=== PATIENT | female | born 1975 | race Caucasian/White ===

== ENCOUNTER 2018-11-29 19:40 | Emergency (ER) | payer SELFPAY ==
[~2018-11-29] VITALS: Ht 152.4 cm; Wt 70.9 kg
[2018-11-29 19:44] VITALS: Ht 152.4 cm; Wt 70.9 kg
--- NOTE | 2018-11-29 21:00 | ERD ---
ER Documentation Chief Complaint Chief Complaint left knee pain s/p fall at work, small abrasion noted HPI Patient is a 43-year-old female with no past medical history presents the ER for concerns of left knee pain and foot pain after trip and fall injury which occurred at work prior to arrival. 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 Patient states she tripped over the coffee table. Patient denies any head injury. Patient reports pain to her left knee as well as her left foot. Patient does have a small abrasion to her left knee. Patient is able to ambulate without any difficulty. ROS All systems reviewed and are negative except as per history of present illness. Medications Home Meds Active Scripts Ibuprofen* (Motrin*) 600 Mg Tab, 600 MG PO Q6H PRN for PAIN AND OR ELEVATED TEMP, #30 TAB Prov:MARIA FERNANDA CAI PA-C 11/29/18 Allergies Allergies: Coded Allergies: No Known Allergy (Unverified , 11/29/18) PMhx/Soc Medical and Surgical Hx: pt denies Medical Hx, pt denies Surgical Hx Hx Alcohol Use: No Hx Substance Use: No Hx Tobacco Use: No Smoking Status: Never smoker FmHx Family History: No diabetes Physical Exam Vitals Vital Signs Date Temp Pulse Resp B/P (MAP) Pulse Ox O2 O2 Flow FiO2 Time Delivery Rate 11/29/18 98.2 85 16 178/95 100 19:44 (122) Physical Exam GENERAL: Well-developed, well-nourished female. Appears in no acute distress. HEAD: Normocephalic, atraumatic. EYES: Pupils are equally reactive bilaterally. EOMs grossly intact. No conjunctival erythema. NECK: Supple. No meningismus. Normal range of motion of the neck. LUNG: Clear to auscultation bilaterally. No rhonchi, wheezing, rales or coarse breath sounds. HEART: Regular rate and rhythm. No murmurs, rubs or gallops. EXTREMITIES: Equal pulses bilaterally. No peripheral clubbing, cyanosis or edema. No unilateral leg swelling. NEUROLOGIC: Alert and oriented. Moving all four extremities without any difficulty. Normal speech. Steady gait. LLE: No deformity, erythema, ecchymosis or swelling. Superficial abrasion noted to the anterior knee. Decreased range of motion of the knee secondary to pain. Tender to palpation over the lateral knee. Tender to palpation over the lateral foot. Nontender palpation of the midfoot, left lateral ankle. Sensation intact to light touch. Neurovascularly intact. (Able to plantarflex, dorsiflex, west foot, invert foot, raise big toe.) 2+ DP and DT pulses. Procedures/MDM ED COURSE: The patient was stable throughout ED course. I kept the patient and/or family informed of laboratory and diagnostic imaging results throughout the ED course. DIAGNOSTIC IMAGING: Read by radiologist. Patient: MERISSA DYER : 1975 Age: 43 Sex: F MR #: [id number] DOS: 11/29/182045 Ordering MD: MARIA FERNANDA CAI PA-C Location: [facility] Room/Bed: PROCEDURE: XR Foot. CLINICAL INDICATION: Pain TECHNIQUE: AP, lateral and oblique views of the left foot was obtained. The images were reviewed on a PACS workstation. COMPARISON: None. FINDINGS: The bones of the foot appear intact, with no evidence of fracture, dislocation, or subluxation. The joint spaces are preserved. The bone mineralization is normal. No significant soft tissue swelling is seen. There is a small posterior calcaneal spur. RPTAT: AA IMPRESSION: Small posterior calcaneal spur. No acute fracture. .Cooper Desouza MD, Date Time Electronically viewed and signed by .Cooper Desouza MD, on 11/29/2018 21:07 .S/ CC: MARIA FERNANDA CAI PA-C [id number] DIAGNOSTIC IMAGING REPORT Patient: MERISSA DYER : 1975 Age: 43 Sex: F MR #: [id number] DOS: 11/29/182032 Ordering MD: MARIA FERNANDA CAI PA-C Location: [facility] Room/Bed: PROCEDURE: Left knee x-ray CLINICAL INDICATION: Knee pain TECHNIQUE: AP, lateral and tunnel views of the left knee were obtained. COMPARISON: None FINDINGS: There is normal mineralization. No acute fracture or dislocation is seen. There is a small exostosis in the left proximal tibia. There are no significant degenerative changes. There is no joint effusion. There is no significant soft tissue swelling. RPTAT: AA IMPRESSION: No acute fracture. .oCoper Desouza MD, MD Date Time Electronically viewed and signed by .Cooper Desouza MD, MD on 11/29/2018 21:07 .S/ CC: MARIA FERNANDA CAI PA-C [id number] MEDICAL DECISION MAKING: This is a 43-year-old female presents ER for concern of left knee pain and foot pain after trip and fall injury while at work earlier today. Vital signs were reviewed. Patient was afebrile. X-ray imaging of the left knee and left ankle are unremarkable. See formal report above. At this time, patient presentation most consistent with knee pain and foot pain. Low suspicion for femur fracture, patella fracture, tibial plateau fracture, septic joint, gout, popliteal cyst, prepatellar bursitis, patellofemoral syndrome, patellar tendinitis, Faustino-Schlatter disease, osteoarthritis, osteomyelitis, DVT or compartment syndrome. At this time, unable to rule out any meniscus and knee ligament injuries. PRESCRIPTIONS: Ibuprofen DISCHARGE: At this time, patient is stable for discharge and outpatient management. RICE therapy and ROM exercises were advised to avoid stiffness. I have instructed the patient to follow-up with his/her primary care physician in 1-2 days. I have discussed with the patient the possibility of needing to see an yard specialist for further workup and imaging if the pain persists. I have instructed the patient to promptly return to the ER for any new or worsening sym ptoms including increased pain, swelling, redness, warmth or fever. The patient and/or family expressed understanding of and agreement with this plan. All questions were answered. Home care instructions were provided. Patient's blood pressure was elevated (>120/80) but appears stable without evidence of hypertensive emergency, hypertensive urgency or end-organ failure. I had discussion with the patient about the risks of hypertension. I have advised the patient to follow up with his/her primary care physician for outpatient monitoring and treatment for hypertension in 2-3 days. I have instructed the patient to return to the ER for any new or worsening symptoms including chest pain, shortness of breath, headache, blurred vision, confusion, nausea, vomiting or LOC. Disclaimer: Inadvertent spelling and grammatical errors are likely due to EHR/dictation software use and do not reflect on the overall quality of patient care. Also, please note that the electronic time recorded on this note does not necessarily reflect the actual time of the patient encounter. Departure Diagnosis: Primary Impression: Left knee pain Chronicity: acute Qualified Codes: M25.562 - Pain in left knee Additional Impressions: Left foot pain Elevated blood pressure reading Condition: Fair Patient Instructions: Knee Pain, Uncertain Cause, Wrist Sprain Referrals: [facility] YOU HAVE RECEIVED A MEDICAL SCREENING EXAM AND THE RESULTS INDICATE THAT YOU DO NOT HAVE A CONDITION THAT REQUIRES URGENT TREATMENT IN THE EMERGENCY DEPARTMENT. FURTHER EVALUATION AND TREATMENT OF YOUR CONDITION CAN WAIT UNTIL YOU ARE SEEN IN YOUR DOCTORS OFFICE WITHIN THE NEXT 1-2 DAYS. IT IS YOUR RESPONSIBILITY TO MAKE AN APPOINTMENT FOR FOLOW-UP CARE. IF YOU HAVE A PRIMARY DOCTOR --you should call your primary doctor and schedule an appointment IF YOU DO NOT HAVE A PRIMARY DOCTOR YOU CAN CALL OUR PHYSICIAN REFERRAL HOTLINE AT IF YOU CAN NOT AFFORD TO SEE A PHYSICIAN YOU CAN CHOSE FROM THE FOLLOWING [facility] [address] [facility]. [facility] [address] [facility] [address] [facility] [address] [facility]. [facility] [address] [facility]. [facility]. [address] [facility]. [facility] YOU HAVE RECEIVED A MEDICAL SCREENING EXAM AND THE RESULTS INDICATE THAT YOU DO NOT HAVE A CONDITION THAT REQUIRES URGENT TREATMENT IN THE EMERGENCY DEPARTMENT. FURTHER EVALUATION AND TREATMENT OF YOUR CONDITION CAN WAIT UNTIL YOU ARE SEEN IN YOUR DOCTORS OFFICE WITHIN THE NEXT 1-2 DAYS. IT IS YOUR RESPONSIBILITY TO MAKE AN APPOINTMENT FOR FOLOW-UP CARE. IF YOU HAVE A PRIMARY DOCTOR --you should call your primary doctor and schedule and appointment IF YOU DO NOT HAVE A PRIMARY DOCTOR YOU CAN CALL OUR PHYSICIAN REFERRAL HOTLINE AT . IF YOU CAN NOT AFFORD TO SEE A PHYSICIAN YOU CAN CHOSE FROM THE FOLLOWING [facility] INSTITUTIONS: [facility] [address] [place] [address] [facility] [address] [place] [address] [facility] [address] [place] [address] [facility] Urgent Care 7 a.m.- 11 p.m. Every Day of the Week NO APPOINTMENT OR AUTHORIZATION NEEDED Additional Instructions: Llame al doctor MAANA y lisandro surekha MOHIT PARA DENTRO DE 1-2 VIEYRA.Dgale a la secretaria que nosotros le instruimos hacer esta mohit.Avise o llame si galdamez condicin se empeora antes de la mohit. Regresa aqui si peor o no mejor. MARIA FERNANDA CAI PA-C Nov 29, 2018 21:00
[2018-11-29] MEDS ORDERED: IBUP-1542 PO (21:11)
[2018-11-29 21:35] VITALS: BP 135/87; PULSE 87; RESP 16
== END 2018-11-29 21:35 | disposition home or self-care (01) ==
LOC: FTE 19:40
DX: S80.212A Abrasion, left knee, initial encounter (principal); S99.922A Unspecified injury of left foot, initial encounter; R03.0 Elevated blood-pressure reading, without diagnosis of hypertension; W01.0XXA Fall on same level from slipping, tripping and stumbling without subsequent striking against object, initial encounter; Y92.89 Other specified places as the place of occurrence of the external cause
CPT/HCPCS: 73562